=== PATIENT | male | born 1940 | race Asian ===

== ENCOUNTER → 2017-07-11 | Outpatient (CLI) | payer MEDICARE, OTHER ==
[2017-07-11 10:23] LABS: HEMATOCRIT 22.4 % (41-53); HEMOGLOBIN 7.5 g/dL (13.5-17.5)
[2017-07-11 10:45] LABS: CALCIUM, TOTAL 9.2 mg/dL (8.8-10.5); CREATININE 1.75 mg/dL (0.60-1.30); POTASSIUM 4.4 mmol/L (3.5-5.1)
== END | disposition home or self-care (01) ==
LOC: LABPV 09:55
PROVIDERS: ATTEND Internal Medicine Nephrology
DX: E78.4 Other hyperlipidemia (principal); D64.9 Anemia, unspecified
CPT/HCPCS: 85014; 85018